=== PATIENT | female | born 1940 | race Hispanic/Latino ===

== ENCOUNTER → 2025-05-19 | Outpatient (CLI) | payer OTHER ==
--- NOTE | 2025-05-20 09:56 | HMCIMG ---
EXAM: CT Cardiac calcium scoring. CLINICAL HISTORY: Screening. TECHNIQUE: Thin collimated axial CT cardiac images were obtained. A CT scan is done according to ALARA (As Low As Reasonably Achievable). CONTRAST: None. COMPARISON: None provided. FINDINGS: Calcium Score: VESSEL Number of lesions Volume mm3 Equi. Mass/mg Calcium score LM 1 60.2 - 69.7 LAD 1 34.9 - 50.5 LCX 0 0.0 - 0.0 RCA 3 209.9 - 235.0 Total 5 305.0 - 355.2 IMPRESSION: The total calcium score is 355.2. 67th percentile. Mild bronchiectatic scarring in the right middle lobe medially and the inferior segment of the lingula. /[facility]
== END | disposition home or self-care (01) ==
LOC: RAH 14:33
PROVIDERS: ATTEND Internal Medicine Cardiovascular Disease
DX: Z13.6 Encounter for screening for cardiovascular disorders (principal); J47.9 Bronchiectasis, uncomplicated
CPT/HCPCS: 75571